=== PATIENT | male | born 2000 | race Caucasian/White ===

== ENCOUNTER 2022-04-14 04:30 | Emergency (ER) | payer BC ==
[2022-04-14] MEDS ORDERED: Alum Hydroxide/Mag Hydroxide 15 ML, Lidocaine 2% 15 ML PO ONE ×2 (04:55)
[2022-04-14 05:31] LABS: ESTIMATED GFR 123 mL/min (>60)
== END 2022-04-14 06:40 | disposition home or self-care (01) ==
LOC: FB.ED 04:30
DX: R07.89 Other chest pain (principal); Z87.891 Personal history of nicotine dependence
CPT/HCPCS: 36415; 80053; 84484; 85025; 99285; A9270